=== PATIENT | female | born 1990 | race Caucasian/White ===

== ENCOUNTER 2017-06-26 08:30 | Emergency (ER) | payer OTHER ==
[2017-06-26 08:48] VITALS: BP 110/88
--- NOTE | 2017-06-26 09:06 | ED Physician Documentation ---
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 denies: fever, chills Worsened By: other (foods drinks) - ROS CONST: no problems CVS/RESP: none GI/: denies: problems urinating, nausea, vomiting NEURO/PSYCH: none - PAST HX Past History: other (chiari malformation) Other History: none Allergies/Adverse Reactions: Allergies Allergy/AdvReac Type Severity Reaction Status Date / Time Penicillins Allergy Severe Anaphylaxis Verified 06/26/17 08:52 azithromycin Allergy Verified 06/26/17 08:52 latex Allergy Rash Verified 06/26/17 08:52 sertraline HCl [From Zoloft] Allergy Verified 06/26/17 08:52 acetaminophen [From Vicodin] AdvReac Nausea/Vomi Verified 06/26/17 08:52 ting codeine AdvReac Nausea/Vomi Verified 06/26/17 08:52 [From Endal Expectorant] ting codeine phosphate AdvReac Nausea/Vomi Verified 06/26/17 08:52 [From Endal Expectorant] ting erythromycin base AdvReac Nausea/Vomi Verified 06/26/17 08:52 [Erythromycin Base] ting guaifenesin AdvReac Nausea/Vomi Verified 06/26/17 08:52 [From Endal Expectorant] ting hydrocodone bitartrate AdvReac Nausea/Vomi Verified 06/26/17 08:52 [From Vicodin] ting phenylephrine HCl AdvReac Nausea/Vomi Verified 06/26/17 08:52 [From Endal Expectorant] ting phenylpropanolamine HCl AdvReac Nausea/Vomi Verified 06/26/17 08:52 [From Endal Expectorant] ting Home Medications: Ambulatory Orders Medication Instructions Recorded Clindamycin HCl [Cleocin HCl] 300 mg PO TID 06/26/17 Nystatin 500,000 Unit/5 ml Udc 500,000 unit PO QID #120 udc 06/26/17 [Nilstat] - SOCIAL HX Smoking History: less than 1 pack/day Alcohol Use: none Drug Use: none - FAMILY HX Family History: Yes (diabetes) - VITAL SIGNS Vital Signs: Vital Signs Temp Pulse Resp BP Pulse Ox 98.3 F 93 H 20 110/88 97 06/26/17 08:31 06/26/17 08:31 06/26/17 08:31 06/26/17 08:31 06/26/17 08:31 - REVIEWED ASSESSMENTS Nursing Assessment Reviewed: Yes Vitals Reviewed: Yes ED Results Lab/Radiology - Orders Orders: ED Orders Category Date Time Status Chem Sticks Med 06/26/17 10:00 Ordered 1 each [facility] Sore throat Physical Exam - EXAM General Appearance: mild distress Head/Neck: head nml inspection Eyes: eyes nml inspection Mouth/Throat: lips nml, no air way problems, pharyngeal erythema, tonsillar exudate. No: gums nml, pharynx nml, widespread dental decay Respiratory: no resp. distress, breath sounds nml CVS: reg. rate & rhythm, heart sounds nml Abdomen: soft, non-tender Extremities: non-tender, nml ROM Skin: warm/dry, normal color. No: cyanosis, diaphoresis, jaundice Neuro/Psych: oriented x3, mood/affect nml Discharge Clincal Impression: acute pharyngitis, oral thrush Prescriptions: Nystatin 500,000 Unit/5 ml Udc [Nilstat] 500,000 unit PO QID #120 udc Referrals: Peggy Tavera MD [Primary Care Provider] - 2 Days Comments: lysine plus nystatin Disposition: 01 HOME, SELF-CARE Decision to Admit: NO Decision Time: 09:10
== END 2017-06-26 09:00 | disposition home or self-care (01) ==
LOC: ED 08:30
DX: J02.9 Acute pharyngitis, unspecified (principal); B37.0 Candidal stomatitis
CPT/HCPCS: 99283

== ENCOUNTER 2018-04-08 10:21 | Outpatient (CLI) | payer OTHER ==
--- NOTE | 2018-04-08 11:26 | Diagnostic Imaging Report ---
SABA ARELLANO (CHRISTIAN) - OP [facility] [id number] [facility].[address] [address] Report Submission Date: Apr 08, 2018 11:17:15 AM CDT Patient Study Name: PRESLEY SMITH Date: Apr 08, 2018 10:32:28 AM CDT Modality Type: DX Gender: F Description: SPINE : 88 Institution: [facility] Physician: SABA ARELLANO (CHRISTIAN) - OP Examination: Cervical spine History: LEFT EAR PAIN SHOOTING DOWN NECK X 1 WEEK. NO KNOWN INJURY (Hx) Comparison exams: None available Findings: 3 views of the cervical spine demonstrate normal height and alignment. No anterior compression. No abnormal listhesis. No odontoid abnormality. No prevertebral abnormality Impression: No acute osseous abnormality Electronically signed on Apr 08, 2018 11:17:15 AM CDT by: Kryee HERNANDEZ
== END 2018-04-08 10:22 ==
LOC: RAD 10:21
PROVIDERS: ATTEND Nurse Practitioner Family
DX: M54.2 Cervicalgia (principal)
CPT/HCPCS: 72040

== ENCOUNTER 2019-09-17 08:56 | Emergency (ER) | payer OTHER ==
--- NOTE | 2019-09-17 08:59 | ED Physician Documentation ---
Chest Pain - HISTORIAN Historian: patient - HPI Stated Complaint: chest pain Chief Complaint: Chest Pain Additional Information: Patient presents to ED with left lateral chest pain radiating to left axilla x 1 week. Patient states the pain is intermittent, dullache, 2/10 to 6/10 without any associated symptoms. Patient states she is on keto diet and has been taking keto pills. She reports dizziness upon standing at times but cannot associate it with chest discomfort. She does states sleep makes the pain go away. Onset: days ago (7) Timing: still present Duration: waxing, waning Last known Well Date: 09/11/19 Last Known Well Time: 10:05 Severity: mild, moderate Quality: dull, aching Chest Pain Radiation: other (left axilla) Chest Pain Signs/Symptoms: denies: nausea, vomiting Relieved By: other (sleep) - ROS CONST: none MS/LYMPH: none GI/: denies: abdominal pain, vomiting, nausea EYES/ENT: denies: problems with vision SKIN/ENDO: denies: rash NEURO/PSYCH: denies: headache - PAST HX PA risk factors: no pertinent history DVT/PE Risk Factors: none TAD/AAA risk factors: none Neuro deficit: none GI disease: none Lung disease: none Surgeries/Procedures: none Allergies/Adverse Reactions: Allergies Allergy/AdvReac Type Severity Reaction Status Date / Time Penicillins Allergy Severe Anaphylaxis Verified 09/17/19 09:12 azithromycin Allergy Verified 09/17/19 09:12 latex Allergy Rash Verified 09/17/19 09:12 sertraline HCl [From Zoloft] Allergy Verified 09/17/19 09:12 acetaminophen [From Vicodin] AdvReac Nausea/Vomi Verified 09/17/19 09:12 ting codeine AdvReac Nausea/Vomi Verified 09/17/19 09:12 [From Endal Expectorant] ting codeine phosphate AdvReac Nausea/Vomi Verified 09/17/19 09:12 [From Endal Expectorant] ting erythromycin base AdvReac Nausea/Vomi Verified 09/17/19 09:12 [Erythromycin Base] ting guaifenesin AdvReac Nausea/Vomi Verified 09/17/19 09:12 [From Endal Expectorant] ting hydrocodone bitartrate AdvReac Nausea/Vomi Verified 09/17/19 09:12 [From Vicodin] ting phenylephrine HCl AdvReac Nausea/Vomi Verified 09/17/19 09:12 [From Endal Expectorant] ting phenylpropanolamine HCl AdvReac Nausea/Vomi Verified 09/17/19 09:12 [From Endal Expectorant] ting Home Medications: Ambulatory Orders Medication Instructions Recorded NK 09/17/19 - SOCIAL HX Smoking History: cigarettes, greater than 1 pack/day Alcohol Use: none Drug Use: none - FAMILY HX Family HX: CAD over 55 - VITAL SIGNS Vital Signs: Vital Signs Temp Pulse Resp BP Pulse Ox 110/88 06/26/17 08:31 - REVIEWED ASSESSMENTS Nursing Assessment Reviewed: Yes Vitals Reviewed: Yes Progress - Progress Progress: Report Submission Date: Sep 17, 2019 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 History: Pain. Lung landers are well aerated without [place] consolidation or effusion. Heart and mediastinal contour are normal. No other bony abnormalities are seen. Impression: No [place]o consolidation or effusion. Electronically signed on Sep 17, 2019 9:39:09 AM WEB SOFTWARE ENGINEER by: Ishan Valenzuela - EKG/XRAY/CT Comments: 0900 NSR [address] elelvation ED Results Lab/Radiology - Lab Results Lab Results: UA - negative for infection Chest Pain Physical Exam - EXAM General Appearance: no acute distress, alert EENT: ALLISON Neck: nml inspection Respiratory: no resp. distress, chest non-tender, nml breath sounds CVS: reg. rate & rhythm, no murmur Abdomen: soft, no organomegaly, normal bowel sounds, no abdominal bruit, no distension Skin: warm/dry Extremities: non-tender, no edema Neuro: oriented X3, mood/affect nml Discharge Clincal Impression: Non-cardiac chest pain Referrals: Pallavi Quiroz PRN [Primary Care Provider] - 2 Days Additional Instructions: 1. Ibuprofen 600mg every 6 hours and/or Tylenol 650mg every 4 hours as needed for pain 2. Drink plenty of fluids to maintain proper hydration. Daily intake goal 4 liters daily. Avoid caffeine and alcohol. 3. Follow up with PCP within 1 week 4. Return to ER for new or worsening symptoms Condition: Stable Decision to Admit: NO Date of Decison to Admit: 09/17/19 Decision Time: 10:46
[2019-09-17 09:12] VITALS: BP 128/56
[2019-09-17 09:35] LABS: eGFR (Non-African) > 60
--- NOTE | 2019-09-17 09:44 | Diagnostic Imaging Report ---
PATIENT MR#: [id number] PATIENT PATIENT NAME: PRESLEY SMITH DATE OF : 1990 REFERRING PHYSICIAN: Yesica Brantley EXAM DATE: 09/17/2019 ACCESSION NUMBER: [id number] EXAM DESCRIPTION: CHEST 2VIEW Exam: Chest two views. History: Pain. Lung landers are well aerated without [place] consolidation or effusion. Heart and mediastinal contour are normal. No other bony abnormalities are seen. Impression: No [place]o consolidation or effusion. Read by: Dr. Ishan Franco Transcribed by: Transcribed Date: Electronically signed by: Dr. Ishan Franco Date signed: 09/17/2019 9:43:46 AM
[2019-09-17] MEDS: KETOROLAC TROMETHAMINE 30 MG/1ML VIAL IV ONE (10:14)
[2019-09-17 11:26] LABS: BASOPHILS % 0.5 % (0.0-1.5)
[2019-09-17 11:58] LABS: APPEARANCE,URINE CLEAR (CLEAR); COLOR,URINE YELLOW (YELLOW); OCCULT BLOOD,URINE TRACE-INTACT (NEGATIVE); UROBILINOGEN URINE 0.2 Eu (0.2-1.0)
== END 2019-09-17 10:52 ==
LOC: ED 08:56
DX: R07.89 Other chest pain (principal)
CPT/HCPCS: 71046; 80053; 81002; 84484; 85025; 93005; 96372; 99282; 99284; J1885; 96374; S1016